=== PATIENT | female | born 1940 | race Caucasian/White ===

== ENCOUNTER 2021-06-01 08:18 | Emergency (ER) | payer MEDICARE, OTHER ==
[~2021-06-01] VITALS: Ht 167.6 cm; Wt 65.9 kg
[~2021-06-01 08:18] MED LIST: ACET500C26 PO; ASPI81TA44 PO; CALC250T2 PO; CHOL10002 PO; ENOX40SY7 SQ; MAGN400T56 PO; OMEG-166 PO; RED600TA PO
[2021-06-01 08:26] VITALS: BP 171/83
[2021-06-01] MEDS ORDERED: dexamethasone sod phosphate 10mg/ml inj IV STA (08:53)
[2021-06-01] MEDS ORDERED: SOTROVIMAB 500mg injection 500 MG in normal saline 100ml IV soln 100 ML IV ONE (08:55)
[2021-06-01] MEDS ORDERED: DEXA6TAB6 PO (09:20)
--- NOTE | 2021-06-01 11:00 | NUR ---
pt observed for one hour post infusion, no reactions noted.
== END 2021-06-01 11:08 | disposition home or self-care (01) ==
LOC: ER 08:19
DX: U07.1 COVID-19 (principal); R09.81 Nasal congestion; Z88.6 Allergy status to analgesic agent; Z88.8 Allergy status to other drugs, medicaments and biological substances; Z79.82 Long term (current) use of aspirin; Z79.899 Other long term (current) drug therapy
CPT/HCPCS: 71045; 96374; 99284; J1100; J3490; M0247; Q0247; 96365; 96375

== ENCOUNTER 2024-05-27 14:31 | Emergency (ER) | payer MEDICARE, OTHER ==
[~2024-05-27] VITALS: Ht 165.1 cm; Wt 63.4 kg
[~2024-05-27 14:31] MED LIST changes: +DEXA6TAB6 PO
[2024-05-27 15:42] VITALS: BP 166/74; PULSE 60; RESP 16; TEMP 98.2; O2SAT 98
== END 2024-05-27 15:43 | disposition home or self-care (01) ==
LOC: ER 14:31
DX: J06.9 Acute upper respiratory infection, unspecified (principal); Z88.5 Allergy status to narcotic agent; Z79.82 Long term (current) use of aspirin; Z79.899 Other long term (current) drug therapy
CPT/HCPCS: 71045; 87502; 87503; 99284